=== PATIENT | male | born 1990 | race Caucasian/White ===

== ENCOUNTER 2017-02-01 21:22 | Emergency (ER) | payer SELFPAY ==
[~2017-02-01] VITALS: Ht 175.3 cm; Wt 72.7 kg
[~2017-02-01 21:22] MED LIST: NOCURR
[2017-02-01] MEDS ORDERED: SULFAMETHOX/TRIMETH DS 800-160 MG/TABLET PO ONE (23:30)
[2017-02-01] MEDS ORDERED: CEPHALEXIN MONOHYDRATE 500 MG CAPSULE PO ONE (23:30)
[2017-02-01] MEDS ORDERED: MUPIROCIN CALCIUM 2% 22 GM OINTMENT TP ONE (23:30)
[2017-02-01] MEDS ORDERED: IBUPROFEN 800 MG TABLET PO ONE (23:30)
[2017-02-01 23:39] VITALS: BP 137/76
== END 2017-02-01 23:43 | disposition home or self-care (01) ==
LOC: EMS 21:26
DX: N50.89 Other specified disorders of the male genital organs (principal); F17.210 Nicotine dependence, cigarettes, uncomplicated
CPT/HCPCS: 99284